=== PATIENT | female | born 1990 | race African-American/Black ===

== ENCOUNTER 2019-10-15 05:11 | Emergency (ER) | payer BC, OTHER ==
[~2019-10-15] VITALS: Ht 165.1 cm; Wt 65.8 kg
[~2019-10-15 05:11] MED LIST: AUGMENTIN TAB875 MG PO; AZITHROMYCIN250 MG ORAL; CEPHALEXIN500 MG ORAL; CLOTRIMAZOLE VA21 GM VAGIN; GUMMI BEAR MUL1 EACH PO; IBUPROFEN600 MG PO; KEFLEX500 MG ORAL; NKM; NORCO 5-325 TA1 EACH PO; PRENATAL MULTI1 EAC1 PO
--- NOTE | 2019-10-15 05:15 | NUR ---
ED Nurse Note: PT WALKED IN TO ED C/O COUGH X1DAY WITH CP 3/ THAT DOES NOT RADIATE. PT DOES NOT PRESENT WITH FEVER, NVD. PT 02 AT 97% RA. VSS, NAD, DAUGHTER AT BEDSIDE, ERMD AT BEDSIDE.
[2019-10-15 05:21] VITALS: BP 112/77
[2019-10-15] MEDS ORDERED: PROMETHAZINE-C118 M1 ORAL (05:28)
[2019-10-15] MEDS ORDERED: ALBUTEROL SULF8.5 GM INH (05:28)
[2019-10-15] MEDS ORDERED: IBUPROFEN600 MG ORAL (05:28)
--- NOTE | 2019-10-15 05:28 | Emergency Room Report ---
History of Present Illness General Chief Complaint: Upper Respiratory Illness Source: Patient Present Illness HPI Is a 29-year-old female with no past medical history she presents with complaint of shortness of breath and chest pain. Onset last night. She has a cough and congestion. Cough is nonproductive nature. When she lays flat she felt like she cannot breathe and has chest tightness. Pain is 5 out of 10. Coughing is nonproductive in nature. No runny nose. Her daughter was sick before her. Denies any urinary complaint. Allergies: Coded Allergies: No Known Allergies (Unverified , 07/16/12) Patient History Past Medical History: none, see triage record, old chart reviewed Past Surgical History: none Pertinent Family History: none Social History: Denies: smoking Last Menstrual Period: control Now: No : 2 Para: 1 Immunizations: other Reviewed Nursing Documentation: PMH: Agreed; PSxH: Agreed Nursing Documentation-PMH Past Medical History: No Stated History Hx Cardiac Problems: No Hx Cancer: No Hx Gastrointestinal Problems: No Hx Neurological Problems: No Review of Systems Eye: Denies: eye pain, blurred vision ENT: Denies: ear pain, nose congestion, throat swelling Respiratory: Reports: cough, shortness of breath Cardiovascular: Reports: chest pain; Denies: palpitations Gastrointestinal: Denies: abdominal pain, diarrhea, nausea, vomiting Musculoskeletal: Denies: back pain, joint pain Skin: Denies: rash Neurological: Denies: headache, numbness Endocrine: Denies: increased thirst, increased urine Hematologic/Lymphatic: Denies: easy bruising All Other Systems: negative except mentioned in HPI Physical Exam Vital Signs Date Time Temp Pulse Resp B/P (MAP) Pulse Ox O2 Delivery O2 Flow Rate FiO2 10/15/19 05:13 97.9 97 18 106/76 (86) 92 Room Air 10/15/19 05:21 97 Vitals normal except for slightly low oxygenation Sp02 EP Interpretation: reviewed, abnormal General Appearance: well appearing, no apparent distress, alert Head: normocephalic, atraumatic Eyes: bilateral eye PERRL, bilateral eye EOMI ENT: hearing grossly normal, normal pharynx Neck: full range of motion, supple, no meningismus Respiratory: chest non-tender, lungs clear, normal breath sounds, decreased breath sounds, other - Coughing with inspiration Cardiovascular #1: regular rate, rhythm, no murmur Gastrointestinal: normal bowel sounds, non tender, no mass, no organomegaly, no bruit, non-distended Musculoskeletal: back normal, normal range of motion, gait/station normal Psychiatric: mood/affect normal Medical Decision Making Diagnostic Impression: Primary Impression: Acute bronchospasm due to viral infection ER Course Patient with a viral upper respiratory infection with bronchospasm. No evidence of ACS, PE, dissection, pneumonia or other serious bacterial infection. Better after breathing treatment. Will discharge home. Last Vital Signs Date Time Temp Pulse Resp B/P (MAP) Pulse Ox O2 Delivery O2 Flow Rate FiO2 10/15/19 05:21 97 17 Room Air 97 10/15/19 05:21 98.2 112/77 92 Status: improved Disposition: HOME, SELF-CARE Condition: Stable Scripts Codeine/Promethazine Hcl* (PROMETHAZINE-CODEINE SYRUP*) 118 Ml Syrup 5 ML ORAL Q6H PRN for For Cough, #118 ML 0 Refills Prov: Cornel Ponce MD 10/15/19 Ibuprofen* (MOTRIN*) 600 Mg Tablet 600 MG ORAL THREE TIMES A DAY, #30 TAB 0 Refills Prov: Cornel Ponce MD 10/15/19 Albuterol Sulfate* (ALBUTEROL SULFATE MDI*) 8.5 Gm Hfa.aer.ad 2 PUFF INH Q4H PRN for cough/wheezing, #1 EA 0 Refills Prov: Cornel Ponce MD 10/15/19 Patient Instructions: Upper Respiratory Infection, Adult Additional Instructions: Increase fluids. Follow-up with your doctor in 7 days. Return if worse. Cornel Ponce MD Oct 15, 2019 05:28
[2019-10-15] MEDS ORDERED: Albuterol ud Inhalation HHN ONE (05:30)
--- NOTE | 2019-10-15 05:36 | NUR ---
ED Nurse Note: RT AT BEDSIDE FOR BREATHING TX
[2019-10-15 05:50] VITALS: BP 121/75
--- NOTE | 2019-10-15 05:50 | NUR ---
ER DISCHARGE NOTE: Patient is cleared to be discharged per ERMD, pt is aox4, on room air, with stable vital signs. pt was given dc and prescription instructions, pt was able to verbalize understanding, pt id band removed without complications. pt is able to ambulate with steady gait. pt took all belongings.
== END 2019-10-15 05:50 | disposition home or self-care (01) ==
LOC: EMR 05:20
DX: B34.9 Viral infection, unspecified (principal); J98.01 Acute bronchospasm
CPT/HCPCS: 99284